=== PATIENT | male | born 1965 | race Caucasian/White ===

== ENCOUNTER 2016-11-02 23:10 | Inpatient (IN) | payer SELFPAY ==
[~2016-11-02] VITALS: Ht 177.8 cm; Wt 86.3 kg
[~2016-11-02 23:10] MED LIST: ALBU8I INH; HYDR-2768 PO; PRED50TA PO; Z.0.NO CURRENT MEDS; ZITH250T PO
[2016-11-02 23:17] VITALS: BP 189/109; PULSE 83; RESP 24; TEMP 98.5; O2SAT 98
[2016-11-02 23:35] VITALS: PULSE 69; RESP 20; TEMP 97.7; O2SAT 100
[2016-11-03] VITALS (8 sets, daily range): BP systolic 140–198; BP diastolic 88–103; PULSE 57–89; RESP 16–22; TEMP 97.5–98.4; O2SAT 97–100
[2016-11-03] MEDS ORDERED: ONDANSETRON HCL 4 MG/2 ML VIAL IV ONE
--- NOTE | 2016-11-03 00:10 | RADRPT ---
EXAM DATE/TIME: 11/02/2016 23:44 [facility] COMPARISON: CHEST SINGLE AP, April 29, 2014, 6:43. INDICATIONS : Vomiting. MEDICAL HISTORY : None. SURGICAL HISTORY : None. ENCOUNTER: Initial ACUITY: 1 day PAIN SCORE: 10/10 LOCATION: Bilateral chest FINDINGS: A single view of the chest demonstrates the lungs to be symmetrically aerated without evidence of mas s, infiltrate or effusion. The cardiomediastinal contours are unremarkable. Osseous structures are intact. CONCLUSION: Normal examination. Jourdan Simental Jr., MD on November 03, 2016 at 0:08 Board Certified Radiologist. This report was verified electronically.
[2016-11-03 00:11] LABS: AUTOMATED NEUTROPHIL # 11.7 TH/MM3 (1.8-7.7); BASOPHIL # 0.1 TH/MM3 (0-0.2); BASOPHIL % 0.5 % (0.0-2.0); EOSINOPHIL % 0.1 % (0.0-4.0); HEMATOCRIT 53.6 % (39.0-51.0); HEMO FLAGS DIFF FINAL; LYMPH % 10.9 % (9.0-44.0); LYMPHOCYTE # 1.5 TH/MM3 (1.0-4.8); MEAN CELL VOLUME 84.1 FL (80.0-100.0); MEAN CORPUSCULAR HEMOGLOBIN 29.7 PG (27.0-34.0); MEAN CORPUSCULAR HGB CONC 35.3 % (32.0-36.0); MONO % 5.4 % (0.0-8.0); NEUT % 83.1 % (16.0-70.0); PLATELET COUNT 354 TH/MM3 (150-450); RED BLOOD COUNT 6.37 MIL/MM3 (4.50-5.90); RED CELL DISTRIBUTION WIDTH 13.2 % (11.6-17.2); WHITE BLOOD COUNT 14.1 TH/MM3 (4.0-11.0)
[2016-11-03 00:42] LABS: ALKALINE PHOSPHATASE 82 U/L (45-117); ALT (GPT) 148 U/L (12-78); ANION GAP 12 MEQ/L (5-15); AST (GOT) 71 U/L (15-37); BICARBONATE 24.7 MEQ/L (21.0-32.0); BLOOD UREA NITROGEN 26 MG/DL (7-18); CHLORIDE 98 MEQ/L (98-107); GLOMERULAR FILTRATION RATE 70 ML/MIN (>89); MAGNESIUM 2.4 MG/DL (1.5-2.5); POTASSIUM 3.8 MEQ/L (3.5-5.1); SODIUM (NA) 135 MEQ/L (136-145); TOTAL BILIRUBIN ADULT 3.2 MG/DL (0.2-1.0)
[2016-11-03 00:47] LABS: ACETAMINOPHEN LESS THAN 2.0 MCG/ML (10.0-30.0)
[2016-11-03] MEDS ORDERED: ONDANSETRON HCL 4 MG/2 ML VIAL IV PUSH PRN (02:00)
[2016-11-03] MEDS ORDERED: SODIUM CHLOR 0.9% 1000 ML INJ 1,000 ML IV ONE ×2 (02:00)
[2016-11-03 02:23] LABS: BLOOD, URINE NEG (NEG); GLUCOSE,URINE NEG (NEG); KETONE, URINE 40 mg/dL (NEG); MUCUS URINE FEW /lpf (OCC); NITRITE,URINE NEG (NEG); URINE COLOR YELLOW (YELLW/STRAW)
[2016-11-03 02:25] LABS: COMMENT (UR) CULT NOT INDICATED; CULTURE IF INDICATED CULT NOT INDICATED
[2016-11-03 02:27] LABS: AMPHETAMINE, URINE NEG (NEG); BARBITURATES, URINE NEG (NEG); COCAINE, URINE NEG (NEG)
--- NOTE | 2016-11-03 02:37 | PD ---
HPI Chief Complaint: GI Complaint Time Seen by Provider: 23:46 Travel History International Travel<30 days: No Contact w/Intl Traveler<30days: No Traveled to known affect area: No History of Present Illness HPI The patient is a 51 year old male who presents to the [facility] emergency department with a history of abdominal pain associated with nausea, vomiting, and diarrhea that began 2 days ago. The patient reports that he's had nausea and vomiting 6 today, diarrhea 5 today. He denies having any history of abdominal pain similar to this previously. He reports that the abdominal pain is generalized and sharp in character. He reports that it has been coming and going, although it is getting worse with time. The patient reports that he has a history of IV drug use for the last 2 years. He last used earlier today. He denies any prior history of pancreatitis, hepatitis, or known HIV. The patient denies having any recent fevers, cough, congestion, chest pain, chest pressure, shortness of breath, urinary symptoms, or neurologic symptoms. [facility] Past Medical History Narrative Medical The patient's past medical history is significant for hypertension, low back pain Cardiovascular Problems: Yes (htn) Diabetes: No Diminished Hearing: No Hypertension: Yes Musculoskeletal: Yes (LOW BACK PAIN, LEFT ROTATOR CUFF) Immunizations Current: Yes Tetanus Vaccination: > 5 Years Influenza Vaccination: No Past Surgical History Narrative Surgical vasectomy, rotator cuff on the left. Other Surgery: Yes (VESECTOMY) Social History Alcohol Use: Yes (OCC) Tobacco Use: Yes (1/2 PPD) Substance Use: Yes (IV diludid today) Allergies-Medications (Allergen,Severity, Reaction): Coded Allergies: Penicillin (Verified Allergy, Severe, HIVES, 11/02/16) Reported Meds & Prescriptions Reported Meds & Active Scripts Active Review of Systems Except as stated in HPI: all other systems reviewed are Neg General / Constitutional: No: Fever Eyes: No: Visual changes HENT: No: Headaches Cardiovascular: No: Chest Pain or Discomfort Respiratory: No: Shortness of Breath Gastrointestinal: Positive: Nausea, Vomiting, Diarrhea, Abdominal Pain, Changes in Bowel Habits Genitourinary: No: Dysuria Musculoskeletal: No: Pain Skin: No Rash Neurologic: No: Weakness Psychiatric: No: Depression Endocrine: No: Polydipsia Hematologic/Lymphatic: No: Easy Bruising Physical Exam Narrative General: The patient is a well-developed well-nourished male in no acute distress. Head and Neck exam: Head is normocephalic atraumatic. Eyes: EOMI, pupils are equal round and reactive to light. Nose: Midline septum with pink mucous membranes Mouth: Dentition unremarkable. Moist mucus membranes. Posterior oropharynx is not erythematous. No tonsillar hypertrophy. Uvula midline. Airway patent. Neck: No palpable lymphadenopathy. No nuchal rigidity. No thyromegaly. Cardiovascular: Regular rate and rhythm without murmurs, gallops, or rubs. No pulse deficit to the extremities. Lungs: Clear to auscultation bilaterally. No wheezes, rhonchi, or rales. Abdomen: Soft, .with tenderness on palpation in the midepigastric area, tenderness on palpation of the right lower quadrant of the abdomen, no other tenderness on palpation of the other quadrants of the abdomen. No guarding, rebound, or rigidity. Negative Knutson's sign. No focal tenderness on palpation of McBurney 's point. Extremities: No clubbing, cyanosis, or edema. 2+ pulses in all 4 extremities. No calf tenderness on palpation. Back: No spinous process tenderness to palpation. No costovertebral angle tenderness to palpation. Neurologic Exam: Grossly nonfocal. Skin Exam: No rash noted. Intact skin that is warm and dry. Data Data Last Documented VS Vital Signs Date Time Temp Pulse Resp B/P Pulse Ox O2 Delivery O2 Flow Rate FiO2 11/03/16 01:35 62 16 175/94 97 Room Air 11/02/16 23:35 97.7 Orders Electrocardiogram (11/02/16 23:46) Complete Blood Count With Diff (11/02/16 23:46) Comprehensive Metabolic Panel (11/02/16 23:46) C-Reactive Protein (Crp) (11/02/16 23:46) Lipase (11/02/16 23:46) Urinalysis - C+S If Indicated (11/02/16 23:46) Magnesium (Mg) (11/02/16 23:46) Chest, Single Ap (11/02/16 23:46) Iv Access Insert/Monitor (11/02/16 23:46) Ecg Monitoring (11/02/16 23:46) Oximetry (11/02/16 23:46) Drug Screen, Random Urine (11/02/16 23:46) Alcohol (Ethanol) (11/02/16 23:46) Salicylates (Aspirin) (11/02/16 23:46) Tylenol (Acetaminophen) (11/02/16 23:46) Sodium Chlor 0.9% 1000 Ml Inj (Ns 1000 M (11/03/16 00:00) Ondansetron Inj (Zofran Inj) (11/03/16 00:00) Lactic Acid (11/02/16 23:46) Sodium Chlor 0.9% 1000 Ml Inj (Ns 1000 M (11/03/16 02:00) Ct Abd/Pel W Iv Contrast(Rout) (11/03/16 01:50) Admit Order (Ed Use Only) (11/03/16 01:51) Labs Laboratory Tests Test 11/02/16 23:50 White Blood Count 14.1 TH/MM3 Red Blood Count 6.37 MIL/MM3 Hemoglobin 18.9 GM/DL Hematocrit 53.6 % Mean Corpuscular Volume 84.1 FL Mean Corpuscular Hemoglobin 29.7 PG Mean Corpuscular Hemoglobin 35.3 % Concent Red Cell Distribution Width 13.2 % Platelet Count 354 TH/MM3 Mean Platelet Volume 7.5 FL Neutrophils (%) (Auto) 83.1 % Lymphocytes (%) (Auto) 10.9 % Monocytes (%) (Auto) 5.4 % Eosinophils (%) (Auto) 0.1 % Basophils (%) (Auto) 0.5 % Neutrophils # (Auto) 11.7 TH/MM3 Lymphocytes # (Auto) 1.5 TH/MM3 Monocytes # (Auto) 0.8 TH/MM3 Eosinophils # (Auto) 0.0 TH/MM3 Basophils # (Auto) 0.1 TH/MM3 CBC Comment DIFF FINAL Differential Comment Sodium Level 135 MEQ/L Potassium Level 3.8 MEQ/L Chloride Level 98 MEQ/L Carbon Dioxide Level 24.7 MEQ/L Anion Gap 12 MEQ/L Blood Urea Nitrogen 26 MG/DL Creatinine 1.10 MG/DL Estimat Glomerular Filtration 70 ML/MIN Rate Random Glucose 113 MG/DL Lactic Acid Level 1.9 mmol/L Calcium Level 9.5 MG/DL Magnesium Level 2.4 MG/DL Total Bilirubin 3.2 MG/DL Aspartate Amino Transf 71 U/L (AST/SGOT) Alanine Aminotransferase 148 U/L (ALT/SGPT) Alkaline Phosphatase 82 U/L C-Reactive Protein 1.04 MG/DL Total Protein 8.7 GM/DL Albumin 4.4 GM/DL Lipase 1932 U/L Salicylates Level LESS THAN 1.7 MG/DL Acetaminophen Level LESS THAN 2.0 MCG/ML Ethyl Alcohol Level LESS THAN 3 MG/DL MDM Medical Decision Making Medical Screen Exam Complete: Yes Emergency Medical Condition: Yes Medical Record Reviewed: Yes Interpretation(s) Last Impressions Abdomen/Pelvis CT 11/03/16 0150 Signed Impressions: Service Date/Time: Thursday, November 03, 2016 03:31 - CONCLUSION: 1. No acute abnormality. 2. 9 mm low attenuation area involving the head of the pancreas. This is poorly characterize with CT. An outpatient followup MRI of the pancreas is suggested to further evaluate. 3. Colonic diverticulosis. Jourdan Simental Jr., MD Chest X-Ray 11/02/16 3316 Signed Impressions: Service Date/Time: Wednesday, November 02, 2016 23:44 - CONCLUSION: Normal examination. Jourdan Simental Jr., MD Differential Diagnosis Gastroenteritis, versus pancreatitis, versus diverticulitis, versus appendicitis , versus colitis, versus opiate withdrawal Narrative Course During the course of the patients emergency department visit, the patients history, examination, and differential diagnosis were reviewed with the patient. The patient had IV access obtained and blood work sent for analysis. The patient was put on a cardiac nurse with oximetry and blood pressure monitoring. An EKG was done on arrival. The EKG shows a sinus rhythm heart rate is 61, prolonged QT interval of 461 ms, no other acute ST segment changes. The patient was provided normal saline 2 L IV fluid bolus, Zofran 4 mg IV, hydromorphone 0.5 mg IV. . The patients laboratory studies were reviewed and remarkable for a white count of 14.1, hemoglobin 18.9 suggesting hemoconcentration, platelets 354 with 83.1 neutrophils, CMP is remarkable for sodium of 135, BUN 26, glucose 113, lactic acid 1.9, total bilirubin 3.2, AST 71, ALT 148, C-reactive protein 1.04, lipase 1932. Urine drug screen is negative, salicylate less than 1.7, acetaminophen less than 2, alcohol less than 3, urinalysis shows 40 ketones otherwise unremarkable. Radiology studies were reviewed and remarkable for a chest x-ray that shows no acute abnormality. CT scan of the abdomen and pelvis reveals no acute abnormality, 9 mm low attenuation area involving the head of the pancreas that is poorly characterized with CT and outpatient follow-up MRI the pancreas is suggested further evaluate, colonic diverticulosis is noted. The patients results were discussed with the patient, including the plan of care. I explained that further testing and/ or monitoring is indicated based on the patients history, examination, and/ or laboratory findings. Therefore, I recommended admission for additional evaluation. The patient expressed understanding and was agreeable with this plan. The patient was admitted to the hospital in stable condition and sent to a bed under the care of [facility] ([place], [place])ist service. Physician Communication Physician Communication The patient's case was discussed with Dr. Jackson. Diagnosis Primary Impression: Acute pancreatitis Qualified Code: K85.90 - Acute pancreatitis, unspecified complication status, unspecified pancreatitis type Admitting Information Admitting Physician Requests: Admit Nhi Rojo MD Nov 03, 2016 02:37
[2016-11-03] MEDS: HYDROmorphone HCL PF 1 MG/ML VIAL IV PUSH ONE ×2 (02:45→03:13)
[2016-11-03] MEDS: SODIUM CHLOR 0.9% 1000 ML INJ 1,000 ML IV SCH ×4 (02:58→22:24)
--- NOTE | 2016-11-03 03:52 | HHI.HP ---
[facility] No Primary Care Physician Admission Diagnosis Acute pancreatitis, vomiting, diarrhea Diagnoses: (1) Acute pancreatitis Diagnosis: Principal Chief Complaint: abdominal pain Travel History International Travel<30 Days: No Contact w/Intl Traveler <30 Da: No Traveled to Known Affected Are: No History of Present Illness patient is a 51 y/o male with history of hypertension, IV drug abuse who presented to ER with abdominal pain. pain is periumbilical with no radiation. pain is severe and is associated with nausea, vomiting and diarrhea.he had some chills but no fever.he doesn't report any similar pain in the past. Review of Systems Constitutional: COMPLAINS OF: Night Sweats, DENIES: Fever, Weight loss, Chills Eyes: DENIES: Blurred vision, Diplopia, Vision loss, Double Vision Ears, nose, mouth, throat: DENIES: Tinnitus, Vertigo, Throat pain, Epistaxis Respiratory: DENIES: Apneas, Cough, Snoring, Wheezing, Hemoptysis, Sputum production, Shortness of breath Cardiovascular: DENIES: Chest pain, Palpitations, Syncope, Dyspnea on Exertion , PND, Lower Extremity Edema, Orthopnea, Claudication Gastrointestinal: COMPLAINS OF: Abdominal pain, Diarrhea, Nausea, Vomiting, DENIES: Black stools, Bloody stools, Constipation, Difficulty Swallowing, Anorexia Genitourinary: DENIES: Urinary frequency, Urgency, Hematuria, Dysuria Musculoskeletal: DENIES: Joint pain, Muscle aches, Stiffness, Joint Swelling Integumentary: DENIES: Rash Neurologic: DENIES: Abnormal gait, Headache, Localized weakness, Paresthesias, Seizures, Speech Problems, Tremor, Poor Balance Psychiatric: DENIES: Anxiety, Confusion, Mood changes, Depression, Hallucinations, Agitation, Suicidal Ideation, Homicidal Ideation, Delusions Past Family Social History Past Medical History hypertension Past Surgical History vasectomy Reported Medications none Allergies: Coded Allergies: Penicillin (Verified Allergy, Severe, HIVES, 11/02/16) Active Ordered Medications Current Medications Sodium Chloride (NS 1000 ml Inj) 1,000 ml @ 1,000 mls/hr Q1H ONCE IV Last administered on 11/03/16 00:01; Start 11/03/16 at 00:00; Stop 11/03/16 at 00:59; Status DC Ondansetron HCl 4 mg 4 mg ONCE ONCE IV Last administered on 11/03/16 00:01; Start 11/03/16 at 00:00; Stop 11/03/16 at 00:01; Status DC Sodium Chloride (NS 1000 ml Inj) 1,000 ml @ 1,000 mls/hr Q1H ONCE IV Last administered on 11/03/16 02:09; Start 11/03/16 at 02:00; Stop 11/03/16 at 02:59; Status DC Ondansetron HCl (Zofran Inj) 4 mg Q8HR PRN IV PUSH NAUSEA; Start 11/03/16 at 02: 00 Hydromorphone HCl (Dilaudid Pf Inj) 1 mg Q4H PRN IV PUSH PAIN; Start 11/03/16 at 02:00 Enalaprilat 1.25 mg 1.25 mg Q8H PRN IV PUSH SBP> OR = 180, DBP> OR = 100; Start 11/03/16 at 02:00 Sodium Chloride (NS 1000 ml Inj) 1,000 ml @ 100 mls/hr Q10H IV Last administered on 11/03/16 02:58; Start 11/03/16 at 02:00 Hydromorphone HCl (Dilaudid Pf Inj) 1 mg ONCE ONCE IV PUSH Last administered on 11/03/16 03:13; Start 11/03/16 at 02:45; Stop 11/03/16 at 02:46; Status DC Family History not relevant to this admission. Social History smokes half a pack a day. uses IV drug.drinks occasionally. Physical Exam Vital Signs Vital Signs Date Time Temp Pulse Resp B/P Pulse Ox O2 Delivery O2 Flow Rate FiO2 11/03/16 00:37 57 16 185/92 97 Room Air 11/03/16 00:01 20 11/02/16 23:39 20 11/02/16 23:35 97.7 69 20 100 11/02/16 23:17 98.5 83 24 189/109 98 Physical Exam GENERAL: This is a well-nourished, well-developed patient, in no apparent distress. SKIN: No rashes, ecchymoses or lesions. Cool and dry. HEAD: Atraumatic. Normocephalic. No temporal or scalp tenderness. EYES: Pupils equal round and reactive. Extraocular motions intact. No scleral icterus. No injection or drainage. ENT: Nose without bleeding, purulent drainage or septal hematoma. Throat without erythema, tonsillar hypertrophy or exudate. Uvula midline. Airway patent. NECK: Trachea midline. No JVD or lymphadenopathy. Supple, nontender, no meningeal signs. CARDIOVASCULAR: Regular rate and rhythm without murmurs, gallops, or rubs. RESPIRATORY: Clear to auscultation. Breath sounds equal bilaterally. No wheezes , rales, or rhonchi. GASTROINTESTINAL: Abdomen soft, tender, nondistended. No hepato-splenomegaly, or palpable masses. No guarding. MUSCULOSKELETAL: Extremities without clubbing, cyanosis, or edema. No joint tenderness, effusion, or edema noted. No calf tenderness. Negative Homans sign bilaterally. NEUROLOGICAL: Awake and alert. Cranial nerves II through XII intact. Motor and sensory grossly within normal limits. Five out of 5 muscle strength in all muscle groups. Normal speech. Laboratory Laboratory Tests Test 11/02/16 11/03/16 23:50 02:00 White Blood Count 14.1 Red Blood Count 6.37 Hemoglobin 18.9 Hematocrit 53.6 Mean Corpuscular Volume 84.1 Mean Corpuscular Hemoglobin 29.7 Mean Corpuscular Hemoglobin 35.3 Concent Red Cell Distribution Width 13.2 Platelet Count 354 Mean Platelet Volume 7.5 Neutrophils (%) (Auto) 83.1 Lymphocytes (%) (Auto) 10.9 Monocytes (%) (Auto) 5.4 Eosinophils (%) (Auto) 0.1 Basophils (%) (Auto) 0.5 Neutrophils # (Auto) 11.7 Lymphocytes # (Auto) 1.5 Monocytes # (Auto) 0.8 Eosinophils # (Auto) 0.0 Basophils # (Auto) 0.1 CBC Comment DIFF FINAL Differential Comment Sodium Level 135 Potassium Level 3.8 Chloride Level 98 Carbon Dioxide Level 24.7 Anion Gap 12 Blood Urea Nitrogen 26 Creatinine 1.10 Estimat Glomerular Filtration 70 Rate Random Glucose 113 Lactic Acid Level 1.9 Calcium Level 9.5 Magnesium Level 2.4 Total Bilirubin 3.2 Aspartate Amino Transf 71 (AST/SGOT) Alanine Aminotransferase 148 (ALT/SGPT) Alkaline Phosphatase 82 C-Reactive Protein 1.04 Total Protein 8.7 Albumin 4.4 Lipase 1932 Salicylates Level LESS THAN 1.7 Acetaminophen Level LESS THAN 2.0 Ethyl Alcohol Level LESS THAN 3 Urine Color YELLOW Urine Turbidity CLEAR Urine pH 6.0 Urine Specific [place] 1.022 Urine Protein TRACE Urine Glucose (UA) NEG Urine Ketones 40 Urine Occult Blood NEG Urine Nitrite NEG Urine Bilirubin NEG Urine Urobilinogen 2.0 Urine Leukocyte Esterase NEG Urine RBC 1 Urine WBC 1 Urine Mucus FEW Microscopic Urinalysis Comment CULT NOT INDICATED Urine Opiates Screen NEG Urine Barbiturates Screen NEG Urine Amphetamines Screen NEG Urine Benzodiazepines Screen NEG Urine Cocaine Screen NEG Urine Cannabinoids Screen NEG Result Diagram: 11/02/16 2350 11/02/16 235 Imaging Last Impressions Chest X-Ray 11/02/162345 Signed Impressions: Service Date/Time: Wednesday, November 02, 2016 23:44 - CONCLUSION: Normal examination. Jourdan Simental Jr., MD Assessment and Plan Assessment and Plan A/P - acute pancreatitis NPO for now- start IV fluid- continue with pain control and antiemetics as needed- repeat lipase in am. CT abdomen pending. -elevated LFT's with history of IV drug abuse- check hepatitis panel -hypertension; not on any BP meds- start IV vasotec prn and continue to monitor BP Discussed Condition With ER physician, the patient and RN. Physician Certification 2 Midnight Certification Type: Admission for Inpatient Services Order for Inpatient Services The services are ordered in accordance with Medicare regulations or non- Medicare payer requirements, as applicable. In the case of services not specified as inpatient-only, they are appropriately provided as inpatient services in accordance with the 2-midnight benchmark. Estimated LOS (days): 2 days is the estimated time the patient will need to remain in the hospital, assuming treatment plan goals are met and no additional complications. Post-Hospital Plan: Home Problem Qualifiers (1) Acute pancreatitis: Qualified Code: K85.90 - Acute pancreatitis, unspecified complication status, unspecified pancreatitis type Kristopher Jackson MD Nov 03, 2016 03:51
[2016-11-03] MEDS ORDERED: IOHEXOL 350 MG/ML 10 ML VIAL (for RAD DIAG) IV ONE (03:56)
[2016-11-03] MEDS: ENALAPRILAT 1.25 MG/ML VIAL IV PUSH PRN ×2 (04:05→17:57)
--- NOTE | 2016-11-03 04:27 | RADRPT ---
EXAM DATE/TIME: 11/03/2016 03:31 [facility] COMPARISON: No previous studies available for comparison. INDICATIONS : Diffuse abdominal pain. IV CONTRAST: 100 cc Omnipaque 350 (iohexol) IV ORAL CONTRAST: No oral contrast ingested. RADIATION DOSE: 10.13 CTDIvol (mGy) MEDICAL HISTORY : Cardiovascular disease. Hypertension. SURGICAL HISTORY : vesectomy ENCOUNTER: Initial ACUITY: 1 day PAIN SCALE: 7/10 LOCATION: abdomen TECHNIQUE: Volumetric scanning of the abdomen and pelvis was performed. Using automated exposure control and ad justment of the mA and/or kV according to patient size, radiation dose was kept as low as reasonably achievable to obtain optimal diagnostic quality images. FINDINGS: LOWER LUNGS: The visualized lower lungs are clear. LIVER: Homogeneous density without lesion. There is no dilation of the biliary tree. No calcified gallston es. SPLEEN: Normal size without lesion. PANCREAS: A 9 mm low-attenuation focus is seen involving the pancreatic head. The remaining pancreas is unremar kable. KIDNEYS: Normal in size and shape. There is no mass, stone or hydronephrosis. ADRENAL GLANDS: Within normal limits. VASCULAR: There is no aortic aneurysm. BOWEL/MESENTERY: The stomach, small bowel, and colon demonstrate no acute abnormality. There is no free intraperitone al air or fluid. Scattered colonic diverticuli without acute inflammation. ABDOMINAL WALL: Within normal limits. RETROPERITONEUM: There is no lymphadenopathy. BLADDER: No wall thickening or mass. REPRODUCTIVE: Within normal limits. INGUINAL: There is no lymphadenopathy or hernia. MUSCULOSKELETAL: Within normal limits for patient age. CONCLUSION: 1. No acute abnormality. 2. 9 mm low attenuation area involving the head of the pancreas. This is poorly characterize with CT. An outpatient followup MRI of the pancreas is suggested to further evaluate. 3. Colonic diverticulosis. Jourdan Simental Jr., MD on November 03, 2016 at 4:23 Board Certified Radiologist. This report was verified electronically.
--- NOTE | 2016-11-03 07:59 | HHI.PR ---
Addendum to Inpatient Note Addendum Reason: Additional Documentation Additional Information pt evaluated, still having pain in his abdomen. would like to drink something as his mouth is dry. never had this before. he has urinated. no more nausea or vomiting. no pain radiation at this time. he is still having epigastric pain but mainly now in the lower quadrants. on exam bowel sounds present, tender to palpation in epigastric region but more tender in both right and lower quadrants, some guarding noted but no rebound - acute pancreatitis continue NPO for now- on IV fluid- continue with pain control and antiemetics as needed- repeat lipase not available but continue to trend CT abdomen shows no acute abnormality however there is an attenuation noted on head of pancreas and outpt f/u w MRI recommended. check u/s of gallbladder for possible gallstones, this is pt's first episode. Pt denies any heavy alcohol use. GI consult in place. -elevated LFT's with history of IV drug abuse- hepatitis panel has been ordered but not yet done. f/u -hypertension; not on any BP meds at home- IV vasotec prn and added amlodipine 10mg po daily and added po hydralazine prn. adjust BP meds. Elevated BP may be also related to pain. monitor Jeanette Phillips MD Nov 03, 2016 07:59
[2016-11-03] MEDS ORDERED: DOCUSATE SODIUM 50 MG/SENNA 8.6 MG TAB PO PRN (08:00)
[2016-11-03] MEDS ORDERED: HYDROmorphone HCL PF 1 MG/ML VIAL SQ ONE (08:30)
[2016-11-03] MEDS: POLYETHYLENE GLYCOL 17 GM PKG PO SCH (09:00)
--- NOTE | 2016-11-03 09:13 | EKG ---
Date Performed: 11/02/2016 Time Performed: 23:56:22 PTAGE: 51 years EKG: Sinus rhythm PROLONGED QT INTERVAL ABNORMAL ECG PREVIOUS TRACING : 04/29/2014 06.24 DOCTOR: Gray Baker Interpretating Date/Time 11/03/2016 09:11:35
[2016-11-03] MEDS ORDERED: HYDROmorphone HCL PF 1 MG/ML VIAL IV PUSH ONE (09:30)
[2016-11-03] MEDS: hydrALAZINE HCL 10 MG TAB PO PRN (11:27)
--- NOTE | 2016-11-03 11:27 | RADRPT ---
EXAM DATE/TIME: 11/03/2016 08:33 [facility] COMPARISON: No previous studies available for comparison. INDICATIONS : Pancreatitis. Nausea and vomiting. MEDICAL HISTORY : Pancreatitis. Hypertension. Lower back and left rotator cuff pain. IV drug abuse. SURGICAL HISTORY : Vasectomy. ENCOUNTER: Initial ACUITY: 1 day PAIN SCORE: 10/10 LOCATION: Right upper quadrant MEASUREMENTS: LIVER: 15.8 cm length COMMON DUCT: 6 mm RIGHT KIDNEY: 11.0 x 5.3 x 6.6 cm FINDINGS: There is no intrahepatic biliary ductal dilatation. Common bile that measures 6 mm. The pancreas is poorly seen because of bowel gas. Minimal debris are present in the gallbladder without obvious sto ne. CONCLUSION: Limited exam. This could be followed by computed tomography with intravenous contrast. Burton Palma MD FACR on November 03, 2016 at 11:23 Board Certified Radiologist. This report was verified electronically.
--- NOTE | 2016-11-03 12:25 | PD.CONS ---
HPI History of Present Illness This is a 51 year old [gentleman] who began having abdominal pain and nausea and vomiting 3 days ago after eating a peanut butter and jelly sandwich. 2 days ago he began having diarrhea. He has never had this pain before. He describes it as being in the lower abdomen, worse on the right side, sharp, and constant. He says since he has been having diarrhea his stools have been very dark, almost black. He has been having chills as well. He is does not think he had blood in his vomit but he isn't sure because he had been drinking red juice when he first vomited and the vomit was red, same color as the juice. He used to drink heavily but stopped a year ago. He says he has been taking dilaudid at home for back and knee pain. (Lizeth Mo) PFSH Past Medical History back pain hypertension Past Surgical History left rotator cuff repair vasectomy (Lizeth Mo) Coded Allergies: Penicillin (Verified Allergy, Severe, HIVES, 11/02/16) Medications Current Medications Medications (Trade) Dose Ordered Sig/[place] Route PRN Reason Start Time Stop Time Status Last Admin Dose Admin Ondansetron HCl (Zofran Inj) 4 mg Q8HR PRN IV PUSH NAUSEA 11/03/16 02:00 Hydromorphone HCl (Dilaudid Pf Inj) 1 mg Q4H PRN IV PUSH BREAKTHROUGH PAIN 11/03/16 02:00 Enalaprilat 1.25 mg 1.25 mg Q8H PRN IV PUSH SBP> OR = 160, DBP> OR = 100 11/03/16 02:00 11/03/16 04:05 Sodium Chloride (NS 1000 ml Inj) 1,000 ml @ 200 mls/hr Q5H IV 11/03/16 02:00 11/03/16 09:51 Influenza Virus Vaccine (Flu (Quadrivalent) Vaccine Inj) 0.5 ml ONCE ONCE IM 11/04/16 09:00 11/04/16 09:01 Amlodipine Besylate (Norvasc) 10 mg DAILY PO 11/04/16 09:00 Hydralazine HCl (Apresoline) 10 mg Q6HR PRN PO SBP>160, DBP>90 11/03/16 08:00 11/03/16 11:27 Acetaminophen/ Hydrocodone Bitart ([place] 5-325 Mg) 1 tab Q4H PRN PO PAIN SCALE 3 TO 5 11/03/16 08:00 Acetaminophen/ Hydrocodone Bitart ([place] 10-325 Mg) 1 tab Q4H PRN PO PAIN SCALE 6 TO 10 11/03/16 08:00 Polyethylene Glycol (Miralax) 17 gm DAILY PO 11/03/16 09:00 Senna/Docusate Sodium (Faye-Colace) 1 tab BID PRN PO CONSTIPATION 11/03/16 08:00 Family History no family hx colon or gastric cancer. Social History smokes 1/2 to 1 ppd. Uses dilaudid. Drinks occasionally now, former heavy drinker a year ago (Lizeth Mo) Review of Systems Constitutional: COMPLAINS OF: Chills, DENIES: Fever Eyes: DENIES: Blurred vision Ears, nose, mouth, throat: COMPLAINS OF: Throat pain, DENIES: Hearing loss Respiratory: DENIES: Cough Cardiovascular: DENIES: Chest pain Gastrointestinal: COMPLAINS OF: Abdominal pain, Black stools, Diarrhea, DENIES : Bloody stools, Nausea, Vomiting Musculoskeletal: COMPLAINS OF: Joint pain, Back pain Integumentary: DENIES: Pruritus, Jaundice Hematologic/lymphatic: DENIES: Bruising (Lizeth Mo) GI Exam Vitals I&O Vital Signs Date Time Temp Pulse Resp B/P Pulse Ox O2 Delivery O2 Flow Rate FiO2 11/03/16 11:20 98.4 69 18 167/102 97 11/03/16 08:10 97.5 89 16 154/99 98 11/03/16 04:00 18 11/03/16 03:58 97.6 64 22 198/102 100 11/03/16 01:35 62 16 175/94 97 Room Air 11/03/16 00:37 57 16 185/92 97 Room Air 11/03/16 00:01 20 11/02/16 23:39 20 11/02/16 23:35 97.7 69 20 100 11/02/16 23:17 98.5 83 24 189/109 98 Imaging Last Impressions Abdomen/Pelvis CT 11/03/16 0150 Signed Impressions: Service Date/Time: Thursday, November 03, 2016 03:31 - CONCLUSION: 1. No acute abnormality. 2. 9 mm low attenuation area involving the head of the pancreas. This is poorly characterize with CT. An outpatient followup MRI of the pancreas is suggested to further evaluate. 3. Colonic diverticulosis. Jourdan Simental Jr., MD Gall Bladder Ultrasound 11/03/16 0000 Signed Impressions: Service Date/Time: Thursday, November 03, 2016 08:33 - CONCLUSION: Limited exam. This could be followed by computed tomography with intravenous contrast. Burton Palma MD FACR Chest X-Ray 11/02/16 2346 Signed Impressions: Service Date/Time: Wednesday, November 02, 2016 23:44 - CONCLUSION: Normal examination. Jourdan Simental Jr., MD Laboratory Test 11/02/16 11/03/16 23:50 02:00 White Blood Count 14.1 TH/MM3 Red Blood Count 6.37 MIL/MM3 Hemoglobin 18.9 GM/DL Hematocrit 53.6 % Mean Corpuscular Volume 84.1 FL Mean Corpuscular Hemoglobin 29.7 PG Mean Corpuscular Hemoglobin 35.3 % Concent Red Cell Distribution Width 13.2 % Platelet Count 354 TH/MM3 Mean Platelet Volume 7.5 FL Neutrophils (%) (Auto) 83.1 % Lymphocytes (%) (Auto) 10.9 % Monocytes (%) (Auto) 5.4 % Eosinophils (%) (Auto) 0.1 % Basophils (%) (Auto) 0.5 % Neutrophils # (Auto) 11.7 TH/MM3 Lymphocytes # (Auto) 1.5 TH/MM3 Monocytes # (Auto) 0.8 TH/MM3 Eosinophils # (Auto) 0.0 TH/MM3 Basophils # (Auto) 0.1 TH/MM3 CBC Comment DIFF FINAL Differential Comment Sodium Level 135 MEQ/L Potassium Level 3.8 MEQ/L Chloride Level 98 MEQ/L Carbon Dioxide Level 24.7 MEQ/L Anion Gap 12 MEQ/L Blood Urea Nitrogen 26 MG/DL Creatinine 1.10 MG/DL Estimat Glomerular Filtration 70 ML/MIN Rate Random Glucose 113 MG/DL Lactic Acid Level 1.9 mmol/L Calcium Level 9.5 MG/DL Magnesium Level 2.4 MG/DL Total Bilirubin 3.2 MG/DL Aspartate Amino Transf 71 U/L (AST/SGOT) Alanine Aminotransferase 148 U/L (ALT/SGPT) Alkaline Phosphatase 82 U/L C-Reactive Protein 1.04 MG/DL Total Protein 8.7 GM/DL Albumin 4.4 GM/DL Lipase 1932 U/L Salicylates Level LESS THAN 1.7 MG/DL Acetaminophen Level LESS THAN 2.0 MCG/ML Ethyl Alcohol Level LESS THAN 3 MG/DL Urine Color YELLOW Urine Turbidity CLEAR Urine pH 6.0 Urine Specific [place] 1.022 Urine Protein TRACE mg/dL Urine Glucose (UA) NEG mg/dL Urine Ketones 40 mg/dL Urine Occult Blood NEG Urine Nitrite NEG Urine Bilirubin NEG Urine Urobilinogen 2.0 MG/DL Urine Leukocyte Esterase NEG Urine RBC 1 /hpf Urine WBC 1 /hpf Urine Mucus FEW /lpf Microscopic Urinalysis Comment CULT NOT INDICATED Urine Opiates Screen NEG Urine Barbiturates Screen NEG Urine Amphetamines Screen NEG Urine Benzodiazepines Screen NEG Urine Cocaine Screen NEG Urine Cannabinoids Screen NEG Physical Examination HEENT: EOMI; normocephalic; atraumatic; no jaundice. NECK: Neck is supple, no JVD CHEST: coarse breath sounds. CARDIAC: Regular rate and rhythm with no murmur gallop or rubs. ABDOMEN: Soft, nondistended, lower abdominal and RLQ TTP; no hepatosplenomegaly ; bowel sounds are present in all four quadrants. EXTREMITIES: No clubbing, cyanosis, or edema. SKIN: Normal; no rash; no jaundice. ACID PUMPER: No focal deficits; alert and oriented times three. (Lizeth Mo) Assessment and Plan Plan ASSESSMENT: - abdominal pain with nausea and vomiting, black loose stool. Lipase 1932. CT abd 11/03/16 ---> 9mm low attenuation area involving head of pancreas, colonic diverticulosis. Will do MRCP and EGD vs ERCP tomorrow - elevated LFTs, AST 71, ALT 148. hep panel pending. PLAN: - MRCP - keep NPO - liver immunology and serology labs - await results of above - await results of hepatitis panel This pt was examined by myself and Dr. Apple and this note is written on his behalf. (Lizeth Mo) Physician Comments Seen and examined with SANDWICH WRAPPER, pancreatitis with no ductal dilation. MRCP-p. Monitor labs. Aggressive ivf rehydration. Will follow. Thank you (Brittanie Apple MD) Lizeth Mo Nov 03, 2016 12:24 Brittanie Apple MD Nov 03, 2016 18:43
[2016-11-03] MEDS: ACETAMINOPHEN/HYDROcodone 325 MG/10 MG TAB PO PRN ×2 (13:01→18:05)
[2016-11-03 15:03] LABS: TRANSFERRIN IRON PROFILE 233 MG/DL (200-360)
[2016-11-03 15:06] LABS: FERRITIN 294 NG/ML (26-388)
[2016-11-03] MEDS: HYDROmorphone HCL PF 1 MG/ML VIAL IV PUSH PRN (15:37)
--- NOTE | 2016-11-03 17:59 | RADRPT ---
EXAM DATE/TIME: 11/03/2016 15:29 [facility] COMPARISON: No previous studies available for comparison. INDICATIONS : MRI screening. MEDICAL HISTORY : Pancreatitis. Hypertension. Lower back and left rotator cuff pain. IV drug abuse. SURGICAL HISTORY : Vasectomy. ENCOUNTER: Subsequent ACUITY: 1 day PAIN SCORE: 0/10 LOCATION: Orbits. FINDINGS: Multiple views of both orbits were performed. There is no evidence of fracture involving the bony st ructures surrounding the orbits. The maxillary sinuses appear to be well aerated. No radiopaque bod ies are seen in the soft tissues. No MRI incompatible foreign body is identified. CONCLUSION: No MRI incompatible foreign body is identified. Burton Palma MD FACR on November 03, 2016 at 17:57 Board Certified Radiologist. This report was verified electronically.
[2016-11-03] MEDS ORDERED: GADODIAMIDE PF 287 MG/ML 5 ML VIAL (for RAD MRI) IV ONE (20:00)
--- NOTE | 2016-11-03 20:30 | RADRPT ---
EXAM DATE/TIME: 11/03/2016 19:16 [facility] COMPARISON: No previous studies available for comparison. INDICATIONS : Abdominal pain. Nausea and vomiting. CONTRAST: 14 cc Omniscan (gadodiamide) IV MEDICAL HISTORY : Hypertension. SURGICAL HISTORY : Rotator cuff, left. Vasectomy. ENCOUNTER: Subsequent ACUITY: 4-6 days PAIN SCORE: 5/10 LOCATION: Right upper quadrant abdomen. Known MRI Precautions: Sedation utilized? NO Anesthesia present? NO MRI reaction? NO If YES, explain: TECHNIQUE: Multiplanar, multisequence magnetic resonance imaging of the abdomen was performed. High-resolution 3D dataset was utilized to reconstruct maximum-intensity projection (MIP) images. FINDINGS: INTRAHEPATIC BILE DUCTS: Within normal limits. No significant anatomical variant is present. EXTRAHEPATIC BILE DUCTS: The common bile duct measures 4 mm. No stone or filling defect is identified. No distal obstructing m ass is visualized. GALLBLADDER: No stones, wall thickening, or pericholecystic fluid. LIVER: Tiny hepatic cysts. Portal vein patent. PANCREAS: The main pancreatic duct is normal in size. There is no significant anatomical variant. Signal inte nsity is within normal limits. No mass is visualized. OTHER: The remaining visualized structures demonstrate no acute abnormality. CONCLUSION: 1. No mass identified within the pancreas. Finding on CT may represent a normal cleft in the pancreas . There is no biliary ductal dilatation or pancreatic ductal dilatation. No acute findings. Tiny righ t lobe hepatic cyst. Andrew Cavanaugh MD on November 03, 2016 at 20:22 Board Certified Radiologist. This report was verified electronically.
[2016-11-04] VITALS (7 sets, daily range): BP systolic 130–212; BP diastolic 87–109; PULSE 55–73; RESP 20–22; TEMP 97.5–98.7; O2SAT 95–99
[2016-11-04] MEDS: ACETAMINOPHEN/HYDROcodone 325 MG/10 MG TAB PO PRN ×4 (00:32→22:59)
[2016-11-04] MEDS: hydrALAZINE HCL 10 MG TAB PO PRN (00:46)
[2016-11-04] MEDS: SODIUM CHLOR 0.9% 1000 ML INJ 1,000 ML IV SCH ×4 (01:10→23:01)
--- NOTE | 2016-11-04 07:43 | HHI.PR ---
Subjective Remarks complaining of abdominal pain mainly in the lower quadrants 02/07. no nausea or vomiting. no CP/SOB Objective Vitals Vital Signs Date Time Temp Pulse Resp B/P Pulse Ox O2 Delivery O2 Flow Rate FiO2 11/04/16 05:57 18 11/04/16 04:00 97.5 65 20 144/87 95 11/04/16 00:00 97.9 66 22 212/109 99 11/03/16 20:02 98.4 59 18 140/88 98 11/03/16 16:16 16 11/03/16 15:11 98.1 63 20 166/103 98 11/03/16 11:20 98.4 69 18 167/102 97 11/03/16 08:10 97.5 89 16 154/99 98 I/O 11/03/16 11/03/16 11/03/16 11/04/16 11/04/16 11/04/16 07:00 15:00 23:00 07:00 15:00 23:00 Intake Total 1623 ml Output Total 450 ml 350 ml 400 ml Balance -450 ml 1273 ml -400 ml Intake IV Total 1623 ml Output Urine Total 450 ml 350 ml 400 ml Result Diagram: 11/02/16 2350 11/02/16 2350 Imaging Last Impressions Abdomen/Pelvis CT 11/03/16 0150 Signed Impressions: Service Date/Time: Thursday, November 03, 2016 03:31 - CONCLUSION: 1. No acute abnormality. 2. 9 mm low attenuation area involving the head of the pancreas. This is poorly characterize with CT. An outpatient followup MRI of the pancreas is suggested to further evaluate. 3. Colonic diverticulosis. Jourdan Simental Jr., MD Orbit X-Ray 11/03/16 0000 Signed Impressions: Service Date/Time: Thursday, November 03, 2016 15:29 - CONCLUSION: No MRI incompatible foreign body is identified. Burton Palma MD FACR Gall Bladder Ultrasound 11/03/16 0000 Signed Impressions: Service Date/Time: Thursday, November 03, 2016 08:33 - CONCLUSION: Limited exam. This could be followed by computed tomography with intravenous contrast. Burton Palma MD FACR Cholangiopancreatography MRI 11/03/16 0000 Signed Impressions: Service Date/Time: Thursday, November 03, 2016 19:16 - CONCLUSION: 1. No mass identified within the pancreas. Finding on CT may represent a normal cleft in the pancreas. There is no biliary ductal dilatation or pancreatic ductal dilatation. No acute findings. Tiny right lobe hepatic cyst. Andrew Cavanaugh MD Chest X-Ray 11/02/16 2346 Signed Impressions: Service Date/Time: Wednesday, November 02, 2016 23:44 - CONCLUSION: Normal examination. Jourdan Simental Jr., MD Objective Remarks GENERAL: This is a well-nourished, well-developed patient, in no apparent distress. CARDIOVASCULAR: Regular rate and rhythm without murmurs RESPIRATORY: Clear to auscultation. No wheezes GASTROINTESTINAL: Abdomen soft, tender lower right and left quadrants MUSCULOSKELETAL: Extremities without edema. No joint tenderness, effusion, or edema noted. No calf tenderness. Negative Homans sign bilaterally. NEUROLOGICAL: Awake and alert. Cranial nerves II through XII intact. Motor and sensory grossly within normal limits. A/P Problem List: (1) Acute pancreatitis ICD Code: K85.90 Status: Acute Assessment and Plan - acute pancreatitis continue NPO for now- on IV fluid- continue with pain control and antiemetics as needed- repeat lipase not available but continue to trend CT abdomen shows no acute abnormality however there is an attenuation noted on head of pancreas and outpt f/u w MRI recommended. MRCP done was neg, GI following, appreciate assistance. -elevated LFT's with history of IV drug abuse- Hep C +, will check hepc antigen -hypertension; not on any BP meds at home- IV vasotec prn and on amlodipine 10mg po daily and added lisinopril 20mg daily. on po hydralazine prn. adjust BP meds. Elevated BP may be also related to pain. monitor Discharge Planning d/c pending further work-up and recs from GI Problem Qualifiers (1) Acute pancreatitis: Qualified Code: K85.90 - Acute pancreatitis, unspecified complication status, unspecified pancreatitis type Jeanette Phillips MD Nov 04, 2016 07:43
[2016-11-04] MEDS: POLYETHYLENE GLYCOL 17 GM PKG PO SCH (08:08)
[2016-11-04] MEDS ORDERED: INFLUENZA VIRUS VACCINE (QUADRIVALENT) 0.5 ML SYR IM ONE (09:00)
[2016-11-04] MEDS ORDERED: LISINOPRIL 20 MG TAB PO ONE (09:15)
[2016-11-04 10:08] LABS: AUTOMATED NEUTROPHIL # 6.6 TH/MM3 (1.8-7.7); BASOPHIL # 0.1 TH/MM3 (0-0.2); EOSINOPHIL # 0.2 TH/MM3 (0-0.4); EOSINOPHIL % 1.6 % (0.0-4.0); HEMATOCRIT 47.8 % (39.0-51.0); HEMO FLAGS DIFF FINAL; LYMPH % 20.1 % (9.0-44.0); LYMPHOCYTE # 1.9 TH/MM3 (1.0-4.8); MEAN CELL VOLUME 86.2 FL (80.0-100.0); MEAN CORPUSCULAR HEMOGLOBIN 29.8 PG (27.0-34.0); MEAN CORPUSCULAR HGB CONC 34.5 % (32.0-36.0); MONO % 6.4 % (0.0-8.0); NEUT % 70.9 % (16.0-70.0); PLATELET COUNT 265 TH/MM3 (150-450); RED BLOOD COUNT 5.55 MIL/MM3 (4.50-5.90); RED CELL DISTRIBUTION WIDTH 13.2 % (11.6-17.2); WHITE BLOOD COUNT 9.4 TH/MM3 (4.0-11.0)
[2016-11-04 10:47] LABS: ALKALINE PHOSPHATASE 67 U/L (45-117); ALT (GPT) 99 U/L (12-78); ANION GAP 5 MEQ/L (5-15); AST (GOT) 41 U/L (15-37); BLOOD UREA NITROGEN 12 MG/DL (7-18); CHLORIDE 105 MEQ/L (98-107); GLOMERULAR FILTRATION RATE 93 ML/MIN (>89); POTASSIUM 4.1 MEQ/L (3.5-5.1); SODIUM (NA) 137 MEQ/L (136-145)
[2016-11-04] MEDS: HYDROmorphone HCL PF 1 MG/ML VIAL IV PUSH PRN (11:13)
[2016-11-04] MEDS: ENALAPRILAT 1.25 MG/ML VIAL IV PUSH PRN (16:10)
--- NOTE | 2016-11-04 16:32 | HHI.GIFU ---
Subjective Remarks Resting in bed. Continues to have abdominal pain but states this is partly because he has been NPO and he is requesting diet. (Angie Casillas) Objective Vitals I&O Vital Signs Date Time Temp Pulse Resp B/P Pulse Ox O2 Delivery O2 Flow Rate FiO2 11/04/16 15:42 97.8 57 20 207/103 95 11/04/16 10:34 130/88 11/04/16 07:59 98.3 55 20 207/105 95 11/04/16 05:57 18 11/04/16 04:00 97.5 65 20 144/87 95 11/04/16 00:00 97.9 66 22 212/109 99 11/03/16 20:02 98.4 59 18 140/88 98 11/03/16 16:16 16 I/O 11/03/16 11/03/16 11/03/16 11/04/16 11/04/16 11/04/16 07:00 15:00 23:00 07:00 15:00 23:00 Intake Total 1623 ml Output Total 450 ml 350 ml 400 ml Balance -450 ml 1273 ml -400 ml Intake IV Total 1623 ml Output Urine Total 450 ml 350 ml 400 ml Laboratory Laboratory Tests Test 11/04/16 11/04/16 09:50 10:20 White Blood Count 9.4 Red Blood Count 5.55 Hemoglobin 16.5 Hematocrit 47.8 Mean Corpuscular Volume 86.2 Mean Corpuscular Hemoglobin 29.8 Mean Corpuscular Hemoglobin 34.5 Concent Red Cell Distribution Width 13.2 Platelet Count 265 Mean Platelet Volume 8.1 Neutrophils (%) (Auto) 70.9 Lymphocytes (%) (Auto) 20.1 Monocytes (%) (Auto) 6.4 Eosinophils (%) (Auto) 1.6 Basophils (%) (Auto) 1.0 Neutrophils # (Auto) 6.6 Lymphocytes # (Auto) 1.9 Monocytes # (Auto) 0.6 Eosinophils # (Auto) 0.2 Basophils # (Auto) 0.1 CBC Comment DIFF FINAL Differential Comment Sodium Level 137 Potassium Level 4.1 Chloride Level 105 Carbon Dioxide Level 27.0 Anion Gap 5 Blood Urea Nitrogen 12 Creatinine 0.86 Estimat Glomerular Filtration 93 Rate Random Glucose 95 Calcium Level 8.4 Total Bilirubin 3.0 Aspartate Amino Transf 41 (AST/SGOT) Alanine Aminotransferase 99 (ALT/SGPT) Alkaline Phosphatase 67 Total Protein 7.0 Albumin 3.5 Lipase 700 Hepatitis C Antibody REACTIVE Imaging Last Impressions Abdomen/Pelvis CT 11/03/16 0150 Signed Impressions: Service Date/Time: Thursday, November 03, 2016 03:31 - CONCLUSION: 1. No acute abnormality. 2. 9 mm low attenuation area involving the head of the pancreas. This is poorly characterize with CT. An outpatient followup MRI of the pancreas is suggested to further evaluate. 3. Colonic diverticulosis. Jourdan Simental Jr., MD Orbit X-Ray 11/03/16 0000 Signed Impressions: Service Date/Time: Thursday, November 03, 2016 15:29 - CONCLUSION: No MRI incompatible foreign body is identified. Burton Palma MD FACR Gall Bladder Ultrasound 11/03/16 0000 Signed Impressions: Service Date/Time: Thursday, November 03, 2016 08:33 - CONCLUSION: Limited exam. This could be followed by computed tomography with intravenous contrast. Burton Palma MD FACR Cholangiopancreatography MRI 11/03/16 0000 Signed Impressions: Service Date/Time: Thursday, November 03, 2016 19:16 - CONCLUSION: 1. No mass identified within the pancreas. Finding on CT may represent a normal cleft in the pancreas. There is no biliary ductal dilatation or pancreatic ductal dilatation. No acute findings. Tiny right lobe hepatic cyst. Andrew Cavanaugh MD Chest X-Ray 11/02/16 2346 Signed Impressions: Service Date/Time: Wednesday, November 02, 2016 23:44 - CONCLUSION: Normal examination. Jourdan Simental Jr., MD Physical Exam HEENT: Normocephalic; atraumatic; no jaundice. CHEST: CTA CARDIAC: RRR ABDOMEN: Soft, nondistended, epigastric tenderness, no hepatosplenomegaly; bowel sounds are present in all four quadrants. EXTREMITIES: No clubbing, cyanosis, or edema. SKIN: Normal; no rash; no jaundice. SENIOR SALES COMPENSATION ANALYST: No focal deficits; alert and oriented times three. (Angie Casillas) Assessment and Plan Plan ASSESSMENT: - Acute pancreatitis/abdominal pain with nausea and vomiting, black loose stool. Abdomen/Pelvis CT (11/03/16)----> 1. No acute abnormality. 2. 9 mm low attenuation area involving the head of the pancreas. This is poorly characterize with CT. An outpatient followup MRI of the pancreas is suggested to further evaluate. 3. Colonic diverticulosis. Gall Bladder Ultrasound (11/03/16)----> Limited exam. This could be followed by computed tomography with intravenous contrast. MRCP (11/03/16)-----> 1. No mass identified within the pancreas. Finding on CT may represent a normal cleft in the pancreas. There is no biliary ductal dilatation or pancreatic ductal dilatation. No acute findings. Tiny right lobe hepatic cyst. Lipase improved 700. Still having abdominal pain, although states this is partly because he is hungry. PPI. IVF. Will start clears and advance in am if lipase continues to trend down. - Elevated LFTs. T. Bili 3.0, AST 41, ALT 99, Alk Phosph. 67 PLAN: - Clear liquids - PPI - Hepatis C Genotype/Viral load - Monitor labs - ETOH Cessation - Supportive care - Further recommendations to follow based on results of above - Pt seen and examined by Dr. Apple and myself and this note is written on his behalf (Angie Casillas) Physician Comments Seen and examined by ARPITA< feeling better, advance to liquid diet. Smith in progress for Hep C. (Brittanie Apple MD) Angie Casillas Nov 04, 2016 16:32 Brittanie Apple MD Nov 04, 2016 19:32
[2016-11-04] MEDS: ACETAMINOPHEN/HYDROcodone 325 MG/5 MG TAB PO PRN (18:54)
[2016-11-05] VITALS: BP 138/68; PULSE 71; RESP 20; TEMP 97.7; O2SAT 98
[2016-11-05] MEDS: HYDROmorphone HCL PF 1 MG/ML VIAL IV PUSH PRN ×2 (04:12→11:10)
[2016-11-05 05:49] LABS: INDIRECT BILIRUBIN 1.1 MG/DL (0.0-0.8); TOTAL BILIRUBIN ADULT 1.5 MG/DL (0.2-1.0)
[2016-11-05 08:00] VITALS: BP 177/74; PULSE 51; RESP 12; TEMP 98; O2SAT 100
[2016-11-05] MEDS: LISINOPRIL 20 MG TAB PO SCH (10:18)
[2016-11-05] MEDS: POLYETHYLENE GLYCOL 17 GM PKG PO SCH (10:18)
[2016-11-05] MEDS: ACETAMINOPHEN/HYDROcodone 325 MG/10 MG TAB PO PRN ×3 (10:18→19:59)
[2016-11-05] MEDS: SODIUM CHLOR 0.9% 1000 ML INJ 1,000 ML IV SCH (10:19)
[2016-11-05 12:00] VITALS: BP 125/81; PULSE 66; RESP 12; TEMP 95.6; O2SAT 99
[2016-11-05 16:00] VITALS: BP 135/85; PULSE 59; RESP 10; TEMP 97.6; O2SAT 98
--- NOTE | 2016-11-05 16:09 | HHI.GIFU ---
Subjective Remarks Resting in bed. States he is feeling much better. No n/v. Wants diet advanced. (Angie Casillas ARPITA) Objective Vitals I&O Vital Signs Date Time Temp Pulse Resp B/P Pulse Ox O2 Delivery O2 Flow Rate FiO2 11/05/16 12:00 95.6 66 12 125/81 99 11/05/16 08:00 98.0 51 12 177/74 100 11/05/16 04:42 18 11/05/16 00:00 97.7 71 20 138/68 98 11/05/16 00:00 18 11/04/16 21:30 98.7 73 20 139/90 99 11/04/16 17:10 148/90 I/O 11/04/16 11/04/16 11/04/16 11/05/16 11/05/16 11/05/16 07:00 15:00 23:00 07:00 15:00 23:00 Intake Total 240 ml 840 ml Output Total 400 ml Balance -400 ml 240 ml 840 ml Intake Oral 240 ml 240 ml IV Total 600 ml Output Urine Total 400 ml # Voids 1 2 # Bowel Movements 0 0 Laboratory Laboratory Tests Test 11/05/16 04:50 Total Bilirubin 1.5 Direct Bilirubin 0.4 Indirect Bilirubin 1.1 Aspartate Amino Transf 35 (AST/SGOT) Alanine Aminotransferase 86 (ALT/SGPT) Alkaline Phosphatase 62 Total Protein 6.4 Albumin 3.2 Lipase 313 Imaging Last Impressions Abdomen/Pelvis CT 11/03/16 0150 Signed Impressions: Service Date/Time: Thursday, November 03, 2016 03:31 - CONCLUSION: 1. No acute abnormality. 2. 9 mm low attenuation area involving the head of the pancreas. This is poorly characterize with CT. An outpatient followup MRI of the pancreas is suggested to further evaluate. 3. Colonic diverticulosis. Jourdan Simental Jr., MD Orbit X-Ray 11/03/16 0000 Signed Impressions: Service Date/Time: Thursday, November 03, 2016 15:29 - CONCLUSION: No MRI incompatible foreign body is identified. Burton Palma MD FACR Gall Bladder Ultrasound 11/03/16 0000 Signed Impressions: Service Date/Time: Thursday, November 03, 2016 08:33 - CONCLUSION: Limited exam. This could be followed by computed tomography with intravenous contrast. Burton Palma MD FACR Cholangiopancreatography MRI 11/03/16 0000 Signed Impressions: Service Date/Time: Thursday, November 03, 2016 19:16 - CONCLUSION: 1. No mass identified within the pancreas. Finding on CT may represent a normal cleft in the pancreas. There is no biliary ductal dilatation or pancreatic ductal dilatation. No acute findings. Tiny right lobe hepatic cyst. Andrew Cavanaugh MD Chest X-Ray 11/02/16 2346 Signed Impressions: Service Date/Time: Wednesday, November 02, 2016 23:44 - CONCLUSION: Normal examination. Jourdan Simental Jr., MD Physical Exam HEENT: Normocephalic; atraumatic; no jaundice. CHEST: CTA CARDIAC: RRR ABDOMEN: Soft, nondistended, epigastric tenderness, no hepatosplenomegaly; bowel sounds are present in all four quadrants. EXTREMITIES: No clubbing, cyanosis, or edema. SKIN: Normal; no rash; no jaundice. WEB RETAILER: No focal deficits; alert and oriented times three. (Angie Casillas) Assessment and Plan Plan ASSESSMENT: - Acute pancreatitis/abdominal pain with nausea and vomiting, black loose stool. Abdomen/Pelvis CT (11/03/16)----> 1. No acute abnormality. 2. 9 mm low attenuation area involving the head of the pancreas. This is poorly characterize with CT. An outpatient followup MRI of the pancreas is suggested to further evaluate. 3. Colonic diverticulosis. Gall Bladder Ultrasound (11/03/16)----> Limited exam. This could be followed by computed tomography with intravenous contrast. MRCP (11/03/16)-----> 1. No mass identified within the pancreas. Finding on CT may represent a normal cleft in the pancreas. There is no biliary ductal dilatation or pancreatic ductal dilatation. No acute findings. Tiny right lobe hepatic cyst. Clinically, much improved. Lipase has normalized. LFTs are trending down. Tolerating clears. Wants this advanced. - Elevated LFTs. T. Bili 1.5, AST 35, ALT 86, Alk Phosph. 62. HCV ab positive. Genotype and viral load pending. ADAM negative, AMA pending. ASMA negative. IMPROVING. - Hepatitis C Antibodies. Genotype and viral load pending. PLAN: - Low fat diet - PPI - Follow Hepatis C Genotype/Viral load - ETOH Cessation - FU LILY 2 weeks - Okay to d/c home if tolerates diet - Pt seen and examined by Dr. Apple and myself and this note is written on his behalf (Angie Casillas) Physician Comments Low fat diet, no etoh. Gi fu upon dc for hepc treatment. Thank you (Brittanie Apple MD) Angie Casillas Nov 05, 2016 16:09 Brittanie Apple MD Nov 05, 2016 19:22
--- NOTE | 2016-11-05 16:37 | HHI.PR ---
Subjective Remarks Patient states has mild 2/10 abdominal pain. denies nausea or vomiting, tolerated diet well no fevers or chills Objective Vitals Vital Signs Date Time Temp Pulse Resp B/P Pulse Ox O2 Delivery O2 Flow Rate FiO2 11/05/16 12:00 95.6 66 12 125/81 99 11/05/16 08:00 98.0 51 12 177/74 100 11/05/16 04:42 18 11/05/16 00:00 97.7 71 20 138/68 98 11/05/16 00:00 18 11/04/16 21:30 98.7 73 20 139/90 99 11/04/16 17:10 148/90 I/O 11/04/16 11/04/16 11/04/16 11/05/16 11/05/16 11/05/16 07:00 15:00 23:00 07:00 15:00 23:00 Intake Total 240 ml 840 ml Output Total 400 ml Balance -400 ml 240 ml 840 ml Intake Oral 240 ml 240 ml IV Total 600 ml Output Urine Total 400 ml # Voids 1 2 # Bowel Movements 0 0 Result Diagram: 11/04/16 0950 11/04/16 0950 Imaging Last Impressions Abdomen/Pelvis CT 11/03/16 0150 Signed Impressions: Service Date/Time: Thursday, November 03, 2016 03:31 - CONCLUSION: 1. No acute abnormality. 2. 9 mm low attenuation area involving the head of the pancreas. This is poorly characterize with CT. An outpatient followup MRI of the pancreas is suggested to further evaluate. 3. Colonic diverticulosis. Jourdan Simental Jr., MD Orbit X-Ray 11/03/16 0000 Signed Impressions: Service Date/Time: Thursday, November 03, 2016 15:29 - CONCLUSION: No MRI incompatible foreign body is identified. Burton Palma MD FACR Gall Bladder Ultrasound 11/03/16 0000 Signed Impressions: Service Date/Time: Thursday, November 03, 2016 08:33 - CONCLUSION: Limited exam. This could be followed by computed tomography with intravenous contrast. Burton Palma MD FACR Cholangiopancreatography MRI 11/03/16 0000 Signed Impressions: Service Date/Time: Thursday, November 03, 2016 19:16 - CONCLUSION: 1. No mass identified within the pancreas. Finding on CT may represent a normal cleft in the pancreas. There is no biliary ductal dilatation or pancreatic ductal dilatation. No acute findings. Tiny right lobe hepatic cyst. Andrew Cavanaugh MD Chest X-Ray 11/02/16 9767 Signed Impressions: Service Date/Time: Wednesday, November 02, 2016 23:44 - CONCLUSION: Normal examination. Jourdan Simental Jr., MD Objective Remarks GENERAL: NAD SKIN: Warm and dry. HEAD: Atraumatic. Normocephalic. EYES: Pupils equal and round. No scleral icterus. No injection or drainage. ENT: No nasal bleeding or discharge. Mucous membranes pink and moist. NECK: Trachea midline. No JVD. CARDIOVASCULAR: Regular rate and rhythm. RESPIRATORY: No accessory muscle use. Clear to auscultation. Breath sounds equal bilaterally. GASTROINTESTINAL: Abdomen soft, mildly tender to palpation on epigastric region , nondistended. Hepatic and splenic margins not palpable. MUSCULOSKELETAL: Extremities without clubbing, cyanosis, or edema. No obvious deformities. NEUROLOGICAL: Awake and alert. No obvious cranial nerve deficits. Motor grossly within normal limits. Five out of 5 muscle strength in the arms and legs. Normal speech. PSYCHIATRIC: Appropriate mood and affect; insight and judgment normal. Procedures none Medications and IVs Current Medications Medications (Trade) Dose Ordered Sig/[place] Route Start Time Stop Time Status Last Admin (Zofran Inj) 4 mg Q8HR PRN IV PUSH 11/03/16 02:00 11/05/16 04:15 (Dilaudid Pf Inj) 1 mg Q4H PRN IV PUSH 11/03/16 02:00 11/05/16 11:10 (Vasotec Inj) 1.25 mg Q8H PRN IV PUSH 11/03/16 02:00 11/04/16 16:10 (Norvasc) 10 mg DAILY PO 11/04/16 09:00 11/05/16 10:18 (Apresoline) 10 mg Q6HR PRN PO 11/03/16 08:00 11/04/16 00:46 ([place] 5-325 Mg) 1 tab Q4H PRN PO 11/03/16 08:00 11/04/16 18:54 ([place] 10-325 Mg) 1 tab Q4H PRN PO 11/03/16 08:00 11/05/16 19:59 (Miralax) 17 gm DAILY PO 11/03/16 09:00 11/05/16 10:18 (Faye-Colace) 1 tab BID PRN PO 11/03/16 08:00 (Prinivil) 20 mg DAILY PO 11/05/16 09:00 11/05/16 10:18 Urinary Catheter: No Vascular Central Line Catheter: No A/P Problem List: (1) Acute pancreatitis ICD Code: K85.90 Status: Acute Plan: Patient admitted to the medical floor. Lipase elevated on admission, trended down, normalized after bowel was rested with npo. Patient on clear liquid diet - diet advanced GI consulted and following CT abdomen as above - low attenuation area on head of the pancreas MRCP ruled out mass continue pain control with norco (2) Transaminitis ICD Code: R74.0 Status: Acute Plan: AST and ALT elevated, trending down - likely due to hepatitis C Continue to monitor lft's (3) Hepatitis C antibody test positive ICD Code: R76.8 Status: Acute Plan: viral load pending (4) HTN (hypertension) ICD Code: I10 Status: Acute Plan: stable bp. On amlodipine and lisinopril. Assessment and Plan GI proph: add ppi DVT prophylaxis: scd's Discharge Planning DC in am if tolerating diet. Problem Qualifiers (1) Acute pancreatitis: Qualified Code: K85.90 - Acute pancreatitis, unspecified complication status, unspecified pancreatitis type Oscar Rouse MD Nov 05, 2016 16:37
[2016-11-05 20:00] VITALS: BP 137/73; PULSE 58; RESP 18; TEMP 97.8; O2SAT 99
[2016-11-06] VITALS: BP 134/78; PULSE 54; RESP 18; TEMP 98.4; O2SAT 98
[2016-11-06] MEDS: HYDROmorphone HCL PF 1 MG/ML VIAL IV PUSH PRN (01:11)
[2016-11-06] MEDS: ACETAMINOPHEN/HYDROcodone 325 MG/5 MG TAB PO PRN (04:19)
[2016-11-06 08:00] VITALS: BP 147/82; PULSE 62; RESP 18; TEMP 97.1; O2SAT 100
[2016-11-06] MEDS: LISINOPRIL 20 MG TAB PO SCH (08:15)
[2016-11-06] MEDS: POLYETHYLENE GLYCOL 17 GM PKG PO SCH (08:17)
[2016-11-06] MEDS: ACETAMINOPHEN/HYDROcodone 325 MG/10 MG TAB PO PRN (11:45)
[2016-11-06 12:00] VITALS: BP 127/87; PULSE 68; RESP 17; TEMP 97.7; O2SAT 99
--- NOTE | 2016-11-06 13:41 | HHI.DCPOC ---
Discharge Care Plan Diagnosis: (1) Acute pancreatitis (2) HTN (hypertension) (3) Transaminitis (4) Hepatitis C antibody test positive Goals to Promote Your Health * To prevent worsening of your condition and complications * To maintain your health at the optimal level Directions to Meet Your Goals Take your medications as prescribed Follow your dietary instruction Follow activity as directed Keep your appointments as scheduled Take your immunizations and boosters as scheduled If your symptoms worsen call your PCP, if no PCP go to Urgent Care Center or Emergency Room Smoking is Dangerous to Your Health. Avoid second hand smoke Call the 24-hour hour crisis hotline for domestic abuse at Oscar Rouse MD Nov 06, 2016 13:41
[2016-11-06] MEDS ORDERED: LISI-515 PO (13:45)
[2016-11-06] MEDS ORDERED: AMLO10 PO (13:45)
--- NOTE | 2016-11-06 13:46 | HHI.DS ---
Discharge Summary Admission Date Nov 03, 2016 at 01:52 Discharge Date: Nov 06, 2016 Admitting Diagnosis Acute pancreatitis, vomiting, diarrhea (1) Acute pancreatitis ICD Code: K85.90 Diagnosis: Principal (2) Transaminitis ICD Code: R74.0 Diagnosis: Principal (3) Hepatitis C antibody test positive ICD Code: R76.8 Diagnosis: Principal (4) HTN (hypertension) ICD Code: I10 Diagnosis: Principal Procedures none Brief History - From Admission patient is a 51 y/o male with history of hypertension, IV drug abuse who presented to ER with abdominal pain. pain is periumbilical with no radiation. pain is severe and is associated with nausea, vomiting and diarrhea.he had some chills but no fever.he doesn't report any similar pain in the past. CBC/BMP: 11/04/16 0950 11/04/16 0950 Significant Findings Laboratory Tests Test 11/04/16 11/04/16 11/05/16 09:50 10:20 04:50 Neutrophils (%) (Auto) 70.9 % (16.0-70.0) Calcium Level 8.4 MG/DL (8.5-10.1) Total Bilirubin 3.0 MG/DL 1.5 MG/DL (0.2-1.0) (0.2-1.0) Aspartate Amino Transf 41 U/L (15-37) (AST/SGOT) Alanine Aminotransferase 99 U/L (12-78) 86 U/L (12-78) (ALT/SGPT) Lipase 700 U/L (73-393) Hepatitis C Antibody REACTIVE (NEGATIVE) Direct Bilirubin 0.4 MG/DL (0.0-0.2) Indirect Bilirubin 1.1 MG/DL (0.0-0.8) Albumin 3.2 GM/DL (3.4-5.0) Imaging Last Impressions Abdomen/Pelvis CT 11/03/16 0150 Signed Impressions: Service Date/Time: Thursday, November 03, 2016 03:31 - CONCLUSION: 1. No acute abnormality. 2. 9 mm low attenuation area involving the head of the pancreas. This is poorly characterize with CT. An outpatient followup MRI of the pancreas is suggested to further evaluate. 3. Colonic diverticulosis. Jourdan Simental Jr., MD Orbit X-Ray 11/03/16 0000 Signed Impressions: Service Date/Time: Thursday, November 03, 2016 15:29 - CONCLUSION: No MRI incompatible foreign body is identified. Burton Palma MD FACR Gall Bladder Ultrasound 11/03/16 0000 Signed Impressions: Service Date/Time: Thursday, November 03, 2016 08:33 - CONCLUSION: Limited exam. This could be followed by computed tomography with intravenous contrast. Burton Palma MD FACR Cholangiopancreatography MRI 11/03/16 0000 Signed Impressions: Service Date/Time: Thursday, November 03, 2016 19:16 - CONCLUSION: 1. No mass identified within the pancreas. Finding on CT may represent a normal cleft in the pancreas. There is no biliary ductal dilatation or pancreatic ductal dilatation. No acute findings. Tiny right lobe hepatic cyst. Anrdew Cavanaugh MD Chest X-Ray 11/02/16 2346 Signed Impressions: Service Date/Time: Wednesday, November 02, 2016 23:44 - CONCLUSION: Normal examination. Jourdan Simental Jr., MD PE at Discharge GENERAL: NAD SKIN: Warm and dry. HEAD: Atraumatic. Normocephalic. EYES: Pupils equal and round. No scleral icterus. No injection or drainage. ENT: No nasal bleeding or discharge. Mucous membranes pink and moist. NECK: Trachea midline. No JVD. CARDIOVASCULAR: Regular rate and rhythm. RESPIRATORY: No accessory muscle use. Clear to auscultation. Breath sounds equal bilaterally. GASTROINTESTINAL: Abdomen soft, non tender, nondistended. Hepatic and splenic margins not palpable. MUSCULOSKELETAL: Extremities without clubbing, cyanosis, or edema. No obvious deformities. NEUROLOGICAL: Awake and alert. No obvious cranial nerve deficits. Motor grossly within normal limits. Five out of 5 muscle strength in the arms and legs. Normal speech. PSYCHIATRIC: Appropriate mood and affect; insight and judgment normal. Hospital Course (1) Acute pancreatitis Patient admitted to the medical floor. Lipase elevated on admission, trended down, normalized after bowel was rested with npo. Patient on clear liquid diet - diet advanced GI consulted and following CT abdomen as above - low attenuation area on head of the pancreas MRCP ruled out mass continue pain control with Olga (2) Transaminitis AST and ALT elevated, trending down - likely due to hepatitis C Continue to monitor lft's (3) Hepatitis C antibody test positive viral load pending (4) HTN (hypertension) stable bp. On amlodipine and lisinopril. GI proph: ppi DVT prophylaxis: scd's Pt Condition on Discharge: Stable Discharge Disposition: Discharge Home Discharge Time: <= 30 minutes Discharge Instructions DIET: Follow Instructions for: Heart Healthy Diet Activities you can perform: Regular-No Restrictions Follow up Referrals: Gastroenterology - 2 Weeks with Brittanie Apple MD PCP Follow-up - 2 Weeks New Medications: Amlodipine (Norvasc) 10 Mg Tab 10 MG PO DAILY Blood Pressure Management #30 TAB Lisinopril (Lisinopril) 20 Mg Tab 20 MG PO DAILY Blood Pressure Management #62 TAB Oscar Rouse MD Nov 06, 2016 13:46
[2016-11-07 15:52] LABS: HCV RNA PCR IU/ML 279000 IU/mL (()); HCV RNA PCR LOGIU/ML 5.45 (())
[2016-11-07 23:50] LABS: HEPATITIS C RNA GENOTYPE 1a (())
[2016-11-07 23:52] LABS: MITOCHONDRIAL ABS LESS THAN 20.0 U (())
== END 2016-11-06 14:46 | disposition home or self-care (01) | DRG 440 ==
LOC: NEPE 23:10 → NEDA 11-03 01:52 → NEPGCP 11-03 03:47 → N07B 11-04 20:34
PROVIDERS: ADMIT Hospitalist; ATTEND Hospitalist
DX: K85.90 Acute pancreatitis without necrosis or infection, unspecified (principal); I10 Essential (primary) hypertension; R79.89 Other specified abnormal findings of blood chemistry; R74.0 Nonspecific elevation of levels of transaminase and lactic acid dehydrogenase [LDH]; M25.569 Pain in unspecified knee; F17.210 Nicotine dependence, cigarettes, uncomplicated
CPT/HCPCS: 71010; 74177; 74183; 76377; 76705; 80053; 80074; 80076; 80307; 81001; 82390; 82728; 83520; 83540; 83550; 83605; 83690; 83735; 85025; 86038; 86140; 86256; 86803; 87522; 87902; 93005; 96361; 96374; A9579; J1170; J2405; J7030; Q9967